=== PATIENT | female | born 1980 | race Two or more races ===

== ENCOUNTER 2017-09-05 02:53 | Inpatient (IN) | payer OTHER ==
[~2017-09-05] VITALS: Ht 165.1 cm; Wt 3.2 kg
[2017-09-05] MEDS ORDERED: ASA81 MG PO (03:59)
[2017-09-05] MEDS ORDERED: PRENATAL TABLE1 EAC1 PO (03:59)
== END 2017-09-07 18:02 | DRG 766 ==
LOC: OB/GYN 02:53 → LDR 02:53 → OB/GYN 10:04
PROC: 10D00Z1 Extraction of Products of Conception, Low, Open Approach (ICD-10-PCS; principal; 2017-09-05)
PROC: 0UL70ZZ Occlusion of Bilateral Fallopian Tubes, Open Approach (ICD-10-PCS; 2017-09-05)
PROC: 4A033R1 Measurement of Arterial Saturation, Peripheral, Percutaneous Approach (ICD-10-PCS; 2017-09-05)
PROC: 4A1HXCZ Monitoring of Products of Conception, Cardiac Rate, External Approach (ICD-10-PCS; 2017-09-05)
DX: O64.1XX0 Obstructed labor due to breech presentation, not applicable or unspecified (principal); Z3A.38 38 weeks gestation of pregnancy; Z37.0 Single live birth; Z30.2 Encounter for sterilization